=== PATIENT | male | born 1965 | race Caucasian/White ===

== ENCOUNTER → 2021-05-19 | Outpatient (CLI) | payer OTHER, MEDICAID ==
[~2021-05-19] MED LIST: /AUGM875TA; COLA100C2; MILKSUS; PROZ20CA; VICO5TAB; [UNRECOGNIZED DRUG - OTHER]
[2021-05-19 17:37] LABS: HEMATOCRIT 38.7 % (42.0-52.0); HEMOGLOBIN 12.8 g/dl (13.5-17.5); MEAN CORPUSCULAR HEMOGLOBIN 31.1 pg (27.0-33.0); MEAN CORPUSCULAR HGB CONC 33.1 g/dl (32.0-36.5); MEAN CORPUSCULAR VOLUME 93.9 fl (80.0-96.0); PLATELET COUNT, AUTOMATED 273 10^3/uL (150-450); RED BLOOD COUNT 4.12 10^6/uL (4.30-6.10); WHITE BLOOD COUNT 6.2 10^3/uL (4.0-10.0)
[2021-05-19 18:02] LABS: ALT/SGPT 26 U/L (12-78); BLOOD UREA NITROGEN 16 MG/DL (7-18); CALCIUM LEVEL 8.8 MG/DL (8.5-10.1); CARBON DIOXIDE LEVEL 32 MEQ/L (21-32); CHLORIDE LEVEL 103 MEQ/L (98-107); CHOLESTEROL LEVEL 219 MG/DL (<200); CREATININE FOR GFR 0.84 MG/DL (0.70-1.30); GLOMERULAR FILTRATION RATE > 60.0 (>56); GLUCOSE, FASTING 95 MG/DL (70-100); HDL CHOLESTEROL 50 MG/DL (>40); LDL CHOLESTEROL 152 MG/DL (<100); NON-HDL-C 169 MG/DL; POTASSIUM SERUM 4.7 MEQ/L (3.5-5.1); SODIUM LEVEL 137 MEQ/L (136-145); TRIGLYCERIDES LEVEL 87 MG/DL (<150)
[2021-05-19 18:09] LABS: CREATININE, URINE 60.3 MG/DL; MALB URINE SIEMENS < 5.0 MG/L; MAU/CREAT RATIO 8.2 MCG/MG (0.0-30.0)
== END ==
LOC: M PLALAB 14:45
PROVIDERS: ATTEND Physician Assistant
DX: Z12.5 Encounter for screening for malignant neoplasm of prostate (principal); I11.9 Hypertensive heart disease without heart failure; E78.5 Hyperlipidemia, unspecified

== ENCOUNTER → 2022-02-06 | Outpatient (CLI) | payer OTHER ==
[~2022-02-06] MED LIST changes: +ALBU8.5H; +ASPI-551 PO; +FLUO20CA22 PO; +METO50TA7 PO; +MUCI600T31 PO; +NICO21PAT TD; +RISATAB3 PO; +SUBO8MIS
== END ==
LOC: M CARPUL 14:43
PROVIDERS: ATTEND Physician Assistant
DX: J45.909 Unspecified asthma, uncomplicated (principal); R06.09 Other forms of dyspnea; U09.9 Post COVID-19 condition, unspecified

== ENCOUNTER → 2022-04-20 | Outpatient (CLI) | payer MEDICAID, OTHER, SELFPAY ==
[2022-04-20 14:05] LABS: BASO # 0.1 10^3/uL (0.0-0.2); EOS # 0.2 10^3/uL (0.0-0.5); EOS % 3.6 % (0.0-3.0); HEMATOCRIT 35.9 % (42.0-52.0); HEMOGLOBIN 11.5 g/dl (13.5-17.5); LYMPH # 2.7 10^3/uL (1.5-5.0); LYMPH % 44.2 % (24.0-44.0); MEAN CORPUSCULAR HEMOGLOBIN 28.2 pg (27.0-33.0); MONO # 0.5 10^3/uL (0.0-0.8); MONO % 8.6 % (2.0-8.0); NEUTROPHILS # 2.6 10^3/uL (1.5-8.5); NEUTROPHILS % 42.4 % (36.0-66.0); PLATELET COUNT, AUTOMATED 231 10^3/uL (150-450); RED BLOOD COUNT 4.08 10^6/uL (4.30-6.10); WHITE BLOOD COUNT 6.2 10^3/uL (4.0-10.0)
[2022-04-20 14:36] LABS: ALBUMIN 3.9 GM/DL (3.2-5.2); ALT/SGPT 22 U/L (12-78); BILIRUBIN,TOTAL 0.6 MG/DL (0.2-1.0); BLOOD UREA NITROGEN 13 MG/DL (7-18); CARBON DIOXIDE LEVEL 33 MEQ/L (21-32); CHLORIDE LEVEL 103 MEQ/L (98-107); CREATININE FOR GFR 0.85 MG/DL (0.70-1.30); GLOMERULAR FILTRATION RATE > 60.0 (>56); GLUCOSE, FASTING 117 MG/DL (70-100); NT-PRO BNP 65 PG/ML (<125); POTASSIUM SERUM 4.4 MEQ/L (3.5-5.1); SODIUM LEVEL 138 MEQ/L (136-145); TOTAL PROTEIN 6.7 GM/DL (6.4-8.2)
[2022-04-20 14:48] LABS: CREATININE, URINE 37.3 MG/DL; MALB URINE SIEMENS 5.9 MG/L; MAU/CREAT RATIO 15.8 MCG/MG (0.0-30.0)
== END ==
LOC: M PLALAB 11:32
PROVIDERS: ATTEND Physician Assistant
DX: R60.0 Localized edema (principal); D72.829 Elevated white blood cell count, unspecified; I10 Essential (primary) hypertension; R74.8 Abnormal levels of other serum enzymes

== ENCOUNTER 2022-10-27 04:27 | Emergency (ER) | payer MEDICAID, OTHER, SELFPAY ==
[~2022-10-27] VITALS: Ht 172.7 cm; Wt 89.9 kg
[2022-10-27 04:27] VITALS: BP 138/81
== END 2022-10-27 04:56 | disposition left against medical advice (07) ==
LOC: M ED 04:27
DX: Z53.21 Procedure and treatment not carried out due to patient leaving prior to being seen by health care provider (principal)